=== PATIENT | male | born 2000 | race African-American/Black ===

== ENCOUNTER 2024-04-07 09:56 | Day surgery (SDC) | payer OTHER ==
[~2024-04-07] VITALS: Ht 172.7 cm; Wt 69.6 kg
[2024-04-07] MEDS ORDERED: fentaNYL 250 MCG/5 ML INJECTION As Ordered ONE (10:41)
[2024-04-07] MEDS ORDERED: MIDAZOLAM INJ 2MG/2ML VIAL As Ordered ONE (10:42)
[2024-04-07] MEDS: LIDOCAINE 1% SDV 5ML VIAL PN ONE (11:15)
[2024-04-07] MEDS: dexAMETHasone 10MG/1ML VIAL PRES.FREE PN ONE (11:15)
[2024-04-07] MEDS: ROPIvacaine 0.5% 30ML VIAL PN ONE (11:15)
[2024-04-07] MEDS: fentaNYL 100 MCG/2 ML INJECTION IV PRN (11:27)
[2024-04-07] MEDS: MIDAZOLAM INJ 2MG/2ML VIAL IV PRN (11:27)
[2024-04-07] MEDS: ceFAZolin SOD 2 GM in IV 1 EA IV ONE (11:42)
[2024-04-07] MEDS: TRANEXAMIC ACID 100 MG/ML 10ML VIAL IV ONE (11:55)
[2024-04-07] MEDS: EPINEPHrine 1MG/ML INJ 30ML MD-VIAL As Ordered ONE (12:37)
[2024-04-07] MEDS: TRANEXAMIC ACID 100 MG/ML 10ML VIAL As Ordered ONE (12:37)
[2024-04-07] MEDS ORDERED: KETOROLAC 60MG 2ML VIAL As Ordered ONE (12:46)
[2024-04-07] MEDS ORDERED: propofoL 200 MG/20 ML VIAL As Ordered ONE (12:47)
[2024-04-07] MEDS ORDERED: ONDANSETRON 4MG 2ML VIAL As Ordered ONE (12:47)
[2024-04-07] MEDS ORDERED: fentaNYL 100 MCG/2 ML INJECTION As Ordered ONE (14:49)
[2024-04-07] MEDS ORDERED: ACETAMINOPHEN 1000MG/100ML IV BAG As Ordered ONE (15:44)
[2024-04-07] MEDS: ceFAZolin 2 GM/D5W 50 ML IV BAG As Ordered ONE (15:44)
[2024-04-07] MEDS ORDERED: dexmedeTOMIDine (4MCG/ML)200MCG/50ML BTL (PRECEDEX) As Ordered ONE (15:54)
[2024-04-07] MEDS ORDERED: ONDANSETRON 4MG 2ML VIAL IV PRN (16:20)
[2024-04-07] MEDS ORDERED: LR 1,000 ML IV SCH (16:20)
[2024-04-07] MEDS ORDERED: fentaNYL 100 MCG/2 ML INJECTION IV PRN (16:20)
[2024-04-07 17:46] VITALS: BP 130/76; TEMP 97.9; O2SAT 99
== END 2024-04-07 18:14 | disposition home or self-care (01) ==
LOC: M SDC 09:56
PROVIDERS: ATTEND Orthopaedic Surgery
DX: M23.612 Other spontaneous disruption of anterior cruciate ligament of left knee (principal); S83.212A Bucket-handle tear of medial meniscus, current injury, left knee, initial encounter; S83.282A Other tear of lateral meniscus, current injury, left knee, initial encounter; X58.XXXA Exposure to other specified factors, initial encounter; Y92.89 Other specified places as the place of occurrence of the external cause; Y93.9 Activity, unspecified
CPT/HCPCS: 29883; 29888; 73560; C1713; J0131; J0171; J0690; J1100; J1885; J2250; J2405; J3010

== ENCOUNTER 2024-05-23 17:09 | Inpatient (IN) | payer OTHER ==
[~2024-05-23] VITALS: Ht 172.7 cm; Wt 72.7 kg
[2024-05-23] MEDS ORDERED: ACET1TAB55 PO (17:32)
[2024-05-23 17:54] LABS: HEMATOCRIT 47.4 % (42.0-52.0); HEMOGLOBIN 16.4 g/dl (13.5-17.5); MEAN CORPUSCULAR HEMOGLOBIN 30.7 pg (27.0-33.0); MEAN CORPUSCULAR HGB CONC 34.6 g/dl (32.0-36.5); MEAN CORPUSCULAR VOLUME 88.6 fl (80.0-96.0); PLATELET COUNT, AUTOMATED 261 10^3/uL (150-450); RED BLOOD COUNT 5.35 10^6/uL (4.30-6.10); WHITE BLOOD COUNT 8.6 10^3/uL (4.0-10.0)
[2024-05-23 18:08] LABS: AMPHETAMINES LEVEL URINE NEGATIVE (NEGATIVE); BARBITURATES URINE NEGATIVE (NEGATIVE); BENZODIAZEPINES URINE NEGATIVE (NEGATIVE); CANNABINOIDS URINE NEGATIVE (NEGATIVE); COCAINE METABOLITE URINE NEGATIVE (NEGATIVE); METHADONE URINE NEGATIVE (NEGATIVE); OPIATES URINE NEGATIVE (NEGATIVE); PHENCYCLIDINE URINE NEGATIVE (NEGATIVE)
[2024-05-23 18:10] LABS: ETHYL ALCOHOL (ETHANOL) < 0.003 % (0.000-0.010)
[2024-05-23 18:12] LABS: ALBUMIN 4.3 G/DL (3.2-5.2); ALKALINE PHOSPHATASE 90 U/L (40-129); ALT/SGPT 47 U/L (7.0-40); AST/SGOT 27 U/L (<34); BILIRUBIN,DIRECT 0.2 MG/DL (<0.4); BILIRUBIN,TOTAL 0.7 MG/DL (0.3-1.2); BLOOD UREA NITROGEN 14 MG/DL (9-23); CALCIUM LEVEL 9.4 MG/DL (8.5-10.1); CARBON DIOXIDE LEVEL 27 MMOL/L (20-31); CHLORIDE LEVEL 104 MMOL/L (98-107); CREATININE FOR GFR 1.06 MG/DL (0.70-1.30); GLOMERULAR FILTRATION RATE > 60.0 (>60); GLUCOSE, FASTING 100 MG/DL (60-100); POTASSIUM SERUM 4.4 MMOL/L (3.5-5.1); SALICYLATE LEVEL < 3.0 MG/DL (<30); SODIUM LEVEL 141 MMOL/L (136-145); TOTAL PROTEIN 7.8 G/DL (5.7-8.2)
[2024-05-23 18:14] LABS: THYROID STIMULATING HORMONE 1.499 uIU/ML (0.55-4.78)
[2024-05-23] MEDS ORDERED: MOM 30ML SUSPENSION UDC PO PRN (20:15)
[2024-05-23] MEDS ORDERED: diphenhydrAMINE 25MG CAP PO PRN (20:15)
[2024-05-23] MEDS ORDERED: ACETAMINOPHEN 325 MG TAB PO PRN (20:15)
[2024-05-23] MEDS ORDERED: traZODone 50 MG TAB PO PRN (20:15)
[2024-05-23] MEDS ORDERED: MAALOX 30 ML SUSP *UDC PO PRN (20:15)
[2024-05-23] MEDS ORDERED: IBUPROFEN 400MG TAB PO PRN (20:15)
[2024-05-23 21:35] VITALS: BP 134/78; TEMP 97.4; O2SAT 99
[2024-05-24 06:47] VITALS: BP 112/74; TEMP 97.8; O2SAT 98
[2024-05-24 17:15] VITALS: BP 133/78; TEMP 97.6; O2SAT 98
[2024-05-25 07:01] VITALS: BP 133/71; TEMP 97.6; O2SAT 100
[2024-05-25] MEDS ORDERED: TRAZ-252 PO (08:29)
== END 2024-05-25 12:27 | disposition home or self-care (01) | DRG 881 ==
LOC: EDBD 17:09 → M ED 17:09 → M ED INP 20:12 → M PSY 21:14
PROVIDERS: ADMIT Psychiatry & Neurology Neurology; ATTEND Psychiatry & Neurology Neurology
DX: F43.21 Adjustment disorder with depressed mood (principal); R45.851 Suicidal ideations; F32.A Depression, unspecified; Z63.0 Problems in relationship with spouse or partner